=== PATIENT | female | born 1970 | race Caucasian/White ===

== ENCOUNTER 2019-06-08 08:00 | Day surgery (SDC) | payer OTHER, SELFPAY ==
[2019-05-28 14:09] VITALS: BMI 53.7
[2019-06-08] VITALS (20 sets, daily range): BP systolic 99–143; BP diastolic 57–87; PULSE 59–89; RESP 9–20; TEMP 36.2–36.7; O2SAT 92–100; BMI 53.7
--- NOTE | 2019-06-08 | PATH_ITS ---
[facility] Accession Number: [id number] . 01 Material submitted: . uterus - UTERUS AND BILATERAL FALLOPIAN TUBES . 01 Diagnosis: Uterus and Bilateral Fallopian Tubes; Uterine Morcellation and Bilateral Salpingectomy: Secretory phase endometrium. Benign leiomyomas. Negative for hyperplasia, atypia and malignancy. Benign bilateral fallopian tubes and paratubal cysts. . [facility] 06/10/2019 1733 Local . 01 Electronically signed: . Brown Johns MD, Pathologist NPI- [id number] . 01 Gross description: . Received in formalin, labeled uterus and bilateral fallopian tubes, is a morcellated uterus (149 grams, 13.5 x 11.5 x 3.8 cm in aggregate) and two detached fimbriated fallopian tubes (tube #1: length-4.7 cm, diameter-0.5 cm; tube #2: length-4.7 cm, diameter-0.5 cm. The cervix and fallopian tubes are absent. The specimen cannot be oriented and the endometrium and myometrium cannot be grossly measured. The parenchyma is serrato and contains multiple solid firm white whorled well circumscribed homogeneous nodules (0.3 x 0.2 x 0.2 cm-1.5 x 0.9 x 0.9 cm). The serosa is serrato smooth and shiny. The fallopian tubes have solo-purple smooth shiny serosa and serraot unremarkable lumens. Section code: (A1-A4) uterine parenchyma, patient portal representative; (A5) fallopian tube #1, patient portal representative serial sections; (A6) fimbria #1, bivalved, entirely submitted; (A7) fallopian tube #2, patient portal representative serial sections; (A8) fimbria #2, bivalved, entirely submitted. ([id number]) /MRV 06/09/2019 1011 Local . 01 Pathologist provided ICD-10: D25.0 . 01 CPT . 976449 Performed at: [address] [facility] [address], [place], [place] [id number] MD Fermin Murcia MD Phone: [phone]
[2019-06-08] MEDS: LACTATED RINGERS 1,000 ML 42 ML IV (09:52)
[2019-06-08] MEDS: LACTATED RINGERS 1,000 ML 100 ML IV ×3 (10:30→15:47)
[2019-06-08] MEDS: APREPITANT 40 MG CAPSULE PO (10:32)
[2019-06-08] MEDS: SCOPOLAMINE 1 PATCH TOP (10:38)
--- NOTE | 2019-06-08 10:40 | SUR.PREOP ---
Medicated with emend and scope patch due to hx of severe car sickness.
--- NOTE | 2019-06-08 10:59 | PM.PREOP ---
Pre-operative Note Interval Note History & Physical reviewed/Exam performed by Physician: Yes Changes to H&P: No
[2019-06-08] MEDS: CEFAZOLIN 2 GM/100 ML FROZ.PIGGY IV (11:10)
--- NOTE | 2019-06-08 11:37 | SUR.OPER ---
Lithotomy on padded OR bed. [employer] Pad Positioner under torso. Head on pillow, arms padded and tucked at sides. Legs secured in padded yellow fins stirrups.
[2019-06-08] MEDS: BUPIVACAINE 0.5% W/ EPI (PF) VIAL 30 ML INJ (11:53)
[2019-06-08] MEDS: SODIUM CHLORIDE IRRIG SOLUTION 250 ML, CEFAZOLIN VIAL 1 GM IRR (11:55)
[2019-06-08] MEDS: ROPIVACAINE 0.2% PF 2 MG/ML 10ML AMP 10 ML INJ (11:56)
[2019-06-08] MEDS: ACETAMINOPHEN IV 1,000 MG/100 ML VIAL 400 MG IV (12:45)
[2019-06-08] MEDS: HYDROMORPHONE 2 MG INJ 0.5 MG IV ×4 (13:26→13:46)
--- NOTE | 2019-06-08 13:28 | SUR.PHASEI ---
Pt woke restless, c/o need to void. Gandara patent. C/o 7-05/09 pelvic pain, medicated with Dilaudid. Tolerating ice chips.
--- NOTE | 2019-06-08 13:48 | SUR.PHASEI ---
Pt c/o sore lt upper lip, edema noted to lip, no bleeding noted. Moisturizer applied.
--- NOTE | 2019-06-08 14:20 | SUR.PHASEI ---
Pt c/o difficulty taking a deep breath. Rt anterior lobe coarse, lt ant. lobe clear. O2 sat 99% 2lnc. Dr. Castro notified, no new orders. Pt denied anxiety.
--- NOTE | 2019-06-08 14:29 | SUR.PHASEI ---
sats intermittently dropping to 87% 2lnc, IS provided. Instructions given verbally, pt able to reach 2500+mls. Sats currently 97%2lnc.
--- NOTE | 2019-06-08 14:39 | SUR.PHASEI ---
Report called to Veronica.
--- NOTE | 2019-06-08 15:06 | SUR.PHASEI ---
Pt transferred to the floor, with belongings bag and suitcase, on 2lnc. Small amt of sero-sang fluid to mid upper drsg and mid lower dressing. Anna-pad unchanged. IV saline locked. VS stable. Pt reported nausea after arrival. Emesis bag provided but nausea improved once the bed was parked. Pt reported her rt toes were bumped upon entering the room, denied injury to toes, no injury observed to toes.
[2019-06-08] MEDS: OXYCODONE/ACETAMINOPHEN 5/325 TABLET 2 TAB PO ×2 (15:47→22:05)
--- NOTE | 2019-06-08 18:31 | P.OP_ITS ---
Operative Date/Time/Diagnoses Date of procedure: 06/08/19 Time of procedure: 12:45 Pre-op diagnosis: Menorrhagia Enlarged fibroid uterus Dysmenorrhea Post-op diagnosis: same Procedure & Clinicians Procedure: Procedures Operation Date: 06/08/19 10:15 Actual Procedures Side Surgeon p Laparoscopic Supracervical Hysterectomy Keshia Marquez MD s Laparoscopic bilateral Salpingectomy Bilateral Keshia Marquez MD Indications: Menorrhagia Dysmenorrhea Enlarged fibroid uterus Surgeon: Keshia Marquez Party Plan Sales Host/Hostess: Amparo Bingham Anesthesia Type: General Operative Notes Findings: 11 week size fibroid uterus that is retroverted Normal tubes and ovaries Enlarged gallbladder Normal liver Normal appendix Closure Type: primary Specimen(s): left tube, right tube and uterus Applied: catheter Estimated blood loss (mL): 75 Blood products transfused: none Procedure in detail: The patient was taken to the operating room where she was placed in the dorsal supine position. After adequate general endotracheal anesthesia was achieved, she was placed in the dorsal lithotomy position, and prepped and draped in the usual sterile fashion. A timeout was performed. A bivalve speculum was placed into the vagina and the anterior lip of the cervix grasped with a single-tooth tenaculum. The cervical os was sequentially dilated until the ZUMI uterine manipulator could pass easily into the endometrial cavity. The single-tooth tenaculum was removed from the anterior lip of the cervix, and the bivalve speculum was removed from the vagina. Attention was then turned to the abdomen where 6 mL of half percent Marcaine with epinephrine were injected in the umbilical fold. A 5 mm incision was made. The long Verhees needle was placed into the peritoneal cavity, and its placement confirmed by aspiration and drop test. The Verhees needle was removed. A long 5 mm trocar was placed without difficulty. 2 other incisions were made midway between the pubic symphysis and umbilicus after 5 mL of half percent Marcaine with epinephrine were injected. These were 5 mm incisions. Two long 5 mm trochars were placed under direct visualization. The right tube was grasped with an atraumatic grasper. Using the plasma kinetic with settings of 40 W the mesosalpinx was cauterized and cut all the way down to the cornua of the uterus. The cornua of the uterus was then grasped with an atraumatic grasper. The utero-ovarian ligaments were cauterized and cut. The round ligament and broad ligament was cauterized and cut with plasma kinetic. Hemostasis was achieved. The bladder flap was created using the plasma kinetic with cautery and cut nursing home across. The uterine arteries on the right side were extensively cauterized with plasma kinetic. All of this was repeated on the left side. The remainder of the bladder flap was created using the plasma kinetic, and the bladder taken down off the lower uterine segment and cervix. Using the Endoloop, the cervix was amputated from the uterus 2 cm above the uterosacral ligaments, after the ZUMI uterine manipulator was removed from the uterus. A sponge stick was placed into the vagina. 6 mL of half percent Marcaine with epinephrine were injected above the pubic symphysis. A long 12 mm trocar was placed. The trocar was removed. The endobag was placed through the suprapubic incision into the peritoneal cavity. The uterus and tubes were placed into the endobag and the edges of the bag brought up through the suprapubic incision. The Roger placed into the endobag. The uterus was hand morcellated in approximately 12 pieces. The Endobag was removed from the peritoneal cavity. The pelvis was copiously irrigated with warm normal saline. No bleeding was noted. 20 cc of 0.2% ropivacaine were placed over the pedicles. The instruments were removed from the abdomen. The CO2 was allowed to escape. The suprapubic incision was closed on the fascia with 0 Vicryl. All of the incisions were closed with 4-0 Biosynl in a subcuticular fashion. The moistened sponge stick was removed from the vagina. Sponge, lap, and instrument counts were correct x- 2. The patient tolerated the procedure well, was taken to PACU in stable condition. Complications: none Post-operative Condition: stable Disposition: PACU Plan for aftercare: To acute care after recovery
[2019-06-08] MEDS: KETOROLAC 30 MG/ML VIAL IV (20:58)
[2019-06-08] MEDS: DOCUSATE 250 MG CAPSULE PO (20:59)
--- NOTE | 2019-06-08 23:23 | PC.NURSE ---
A&OX3. 96%RA. lap sites are cdi. Scant amount of drainage on melvin pad. pain controlled with percocet and toradol. tina patent. call light in reach.
--- NOTE | 2019-06-09 00:09 | PC.NURSE ---
Addendum entered by Dacia Solitario R.N. 06/09/19 06:26: Catheter d'cd at 0610; tolerated well. Instructed in sx/prevention of UTI; verbalizes understanding. Peripad changed but minimal sanguinous drainage noted. Addendum entered by Dacia Solitario R.N. 06/09/19 04:23: Complains of 4/10 pelvic pain; medicated with Toradol and ice applied. Original Note: Patient is alert and oriented. Breath sounds CTA with RA sat of 98%. HRR rate of 60 apical. Denies nausea. BT present but denies flatus. Abdomen is tender related to surgical incisions. Lap sites with dressings intact; dime size serosanuinous drainage on suprapubic site. Indwelling catheter is patent; urine is clear, pale yellow. Able to move self in bed. Peripad with scant serosanguinous drainage. Bilateral LE non pitting edema noted. Wearing bilateral calf SCD's. States pain is 4/10 and tolerable at this time; declined pain med. Fall risk score is moderate; patient appropriate and adamantly refusing bed alarm and agreeable to calling for assistance.
[2019-06-09] MEDS: LACTATED RINGERS 1,000 ML 100 ML IV (02:05)
[2019-06-09] MEDS: KETOROLAC 30 MG/ML VIAL IV (04:20)
[2019-06-09 04:26] VITALS: BP 119/70; PULSE 55; RESP 20; TEMP 36.7; O2SAT 95
[2019-06-09 05:51] LABS: Add Manual Diff / Slide Review NO; Basophils Absolute Auto 0 /uL (0-100); Basophils Percent Auto 0.4 % (0-2); Eosinophils Absolute Auto 0 /uL (0-450); Hematocrit 35.7 % (36-46); Hemoglobin 11.9 g/dL (12.0-16.0); Lymphocytes Absolute Auto 1000 /uL (1100-4500); Lymphocytes Percent Auto 9.6 % (25-40); Mean Corpuscular HGB Conc 33.4 % (30-36); Mean Corpuscular Hemoglobin 28.6 PG (26-34); Mean Corpuscular Volume 85.7 fL (80-100); Monocytes Absolute Auto 300 /uL (0-900); Monocytes Percent Auto 3.2 % (3-14); Neutrophils Absolute Auto 9000 /uL (1500-7000); Neutrophils Percent Auto 86.8 % (50-75); Platelet Count 255 X10^3/uL (150-400); Red Blood Cell Count 4.17 X10^6/uL (4.0-5.2); Red Cell Distribution Width 14.7 % (11.6-14.8); White Blood Cell Count 10.3 X10^3/uL (4.5-11.0)
[2019-06-09 08:23] VITALS: BP 124/59; PULSE 51; RESP 16; TEMP 36.8; O2SAT 96
--- NOTE | 2019-06-09 09:15 | CM.DANOTE ---
Addendum entered by JAMMIE Manuel 06/09/19 15:02: ADD: Per MD, pt medically stable to d/c home today with no identified barriers to discharge. Per RN, pt has friend here to help get medications and transport pt back to Saturday and no concerns at this time. Plan: Patient to d/c back home via friend POV this afternoon and no SW needs at this time. BF Original Note: Patient is a 48 year old female who was admitted on 06/08/19 for Surgical procedure for pelvic pain. Pt has [employer] Insurance and her PCP is Dr. Tawnya Bobo. EMR was reviewed. Per Dr. Marquez, pt tolerated surgical procedure well. Pt resides on Saturday and is Independent with ADL's at baseline. Plan: SW to follow closely for bedside assessment to determine how pt progresses and if continues to be safe for return home at d/c and any further identified needs. JAMMIE Manuel
[2019-06-09] MEDS: DOCUSATE 250 MG CAPSULE PO (09:18)
[2019-06-09] MEDS: OXYCODONE/ACETAMINOPHEN 5/325 TABLET 2 TAB PO ×2 (09:23→14:32)
[2019-06-09 11:42] VITALS: BP 117/64; PULSE 54; RESP 15; TEMP 37; O2SAT 95
--- NOTE | 2019-06-09 11:56 | PC.NURSE ---
Addendum entered by Komal Barber R.N. 06/09/19 16:11: Patient escorted out via wheelchair by hospital staff. Friend w/patient Addendum entered by Tabitha Starks R.N. 06/09/19 14:53: PRN Percocet and Ibuprofen X1 given prior to discharge. Pt's plans to leave around 1545 for [address] to [place]. Pt has Priority boarding pass. Discharge summary packet reviewed with patient, no voiced concerns. States has all belongings. Pt's friend took her prescription from Dr. simons to take to pharmacy per pt request. Pt states has Colace medication, prunes, ibuprofen at home already. Original Note: Day Shift- Pt's pain 4-6/10 to lower pelvic area and intermittent sharp pain to RLQ. Abd lap sites X4 gauze and tegaderm intact with small drainage to pelvic site and umbilicus site. PT VOIDED X3 since urinary catheter removed. No spotting noted on melvin-pad. Drinking fair amount of water. IVF S/L'd at 1155. Pt OOB with SBA. Would like to go home later today after Dr toure.
[2019-06-09 13:18] VITALS: PULSE 62; RESP 21; O2SAT 96
[2019-06-09] MEDS: IBUPROFEN 600 MG TABLET PO (14:32)
--- NOTE | 2019-06-09 20:33 | P.DS_ITS ---
History of Present Illness History of Present Illness Date Patient Seen: 06/09/19 Time Patient Seen: 13:30 Chief complaint: *OPB*[id number] Narrative: Patient is a 48-year-old 0 who is postop day # 1 status post laparoscopic supracervical hysterectomy with bilateral salpingectomy Patient's catheter was removed this morning and she was able to completely empty her bladder. She is tolerating a diet. Her pain is well controlled. She is ambulating independently. Discharge Providers Provider Discharge Date: 06/09/19 Primary care physician: BINDU Mckeon Consults: 06/08/19 16:43 Consult to Respiratory Therapy Evaluate & Treat Comment: Physician Instructions: Evaluate and treat Discharge provider: Keshia Marquez MD Summary Hospital Course Discharge Diagnosis: Laparoscopic supracervical hysterectomy with bilateral salpingectomy Hospital Course: Patient presented on 06/08/2019 for a scheduled laparoscopic supracervical hysterectomy with bilateral salpingectomy. She underwent these procedures without complication. Her postoperative course was unremarkable. She was emptying her bladder on postop day # 1. She is tolerating a diet. She has no nausea and vomiting. She is ambulating independently. Her pain is well controlled. She is discharged home to follow up at 2 weeks Status at Discharge Cognitive/behavioral status at discharge: oriented Functional status at discharge: independent ambulation Overall status at discharge: patient is progressing back to baseline Time Spent with Patient Time spent: Less than 30 minutes Exam Vital Signs (past 8 hours): - 06/09/19 13:18 Pulse Rate 62 Respiratory Rate 21 Pulse Oximetry 96 Oxygen Delivery Method Room Air Oxygen Flow Rate 0 Narrative Exam Narrative: Generally: Patient is sitting up in a chair, eating lunch, no acute distress Lungs: Clear to auscultation bilaterally Cardiovascular: Regular rate and rhythm Abdomen: Soft and flat. Good bowel sounds Incisions: Clean dry and intact with op sites Extremities: Negative Homans, no edema Objective Labs Result Diagrams: 06/09/19 05:05 Labs: Laboratory Results - last 24 hr 06/09/19 05:05 WBC 10.3 RBC 4.17 Hgb 11.9 L Hct 35.7 L MCV 85.7 MCH 28.6 MCHC 33.4 RDW 14.7 Plt Count 255 Neut % (Auto) 86.8 H Lymph % (Auto) 9.6 L [place] % (Auto) 3.2 Eos % (Auto) 0.0 L Baso % (Auto) 0.4 Neut # (Auto) 9000 H Lymph # (Auto) 1000 L [place] # (Auto) 300 Eos # (Auto) 0 Baso # (Auto) 0 Discharge Plan Discharge Plan Patient Disposition: Home Discharge comment: Call with fever, chills or bleeding vaginally more than spotty to light Discharge Med Rec/Prescriptions Prescriptions: New oxycodone-acetaminophen [Percocet] 5-325 mg tablet 2 tab PO Q4-6H PRN (Reason: pain) Qty: 30 RF: 0 Continued oxycodone-acetaminophen [Percocet] 5-325 mg tablet 1 tab PO Q4-6H PRN (Reason: pain) Qty: 30 RF: 0 rizatriptan 5 mg tablet 10 mg PO ONCE PRN (Reason: Migraine Headache) RF: 0 acetaminophen See Rx Instructions .ROUTE .COMPLEX RF: 0 ibuprofen 800 mg PO 4-6XD PRN (Reason: Pain, Mild) RF: 0 ondansetron 4 mg Tablet,Disintegrating 4 mg PO Q6H PRN (Reason: Migraine Headache) RF: 0 Discontinued medroxyprogesterone 10 mg tablet See Rx Instructions PO DAILY PRN (Reason: Bleeding) RF: 0 Follow up/Referrals: Keshia Marquez MD [Physician] - 2 Weeks (2 week appt by phone 6 week appt in the office) Discharge Orders: Discharge (Order); Ordered 06/09/19 Ordered By: Keshia Marquez Provider Discharge Instructions Diet: Regular Skin/Wound/Dressing Care Report to your healthcare provider any signs of infection, such as:: chills, fever, increased pain, unusual drainage and unusual redness Dressing: Remove outer plastic dressings and guaze tomorrow after a shower Visit Report/Discharge Packet Instructions: DI for Hysterectomy, DI for Laparoscopy, DI for Constipation, How to Prevent Falls, DI for Postoperative Pain Stand Alone Forms: Surgery Discharge Discharge Data Primary Care Provider: Tawnya Bobo Attending Provider: Keshia Marquez Discharges patient from system. Discharge Date/Time: 06/09/19 16:00
== END 2019-06-09 16:00 | disposition home or self-care (01) ==
LOC: OR 08:02 → AC 08:03
PROVIDERS: PCP Nurse Practitioner Family; Visit Provider Obstetrics & Gynecology
PROC: 0UT94ZL Resection of Uterus, Supracervical, Percutaneous Endoscopic Approach (ICD-10-PCS; CPT 58542; principal; 2019-06-08 10:15)
PROC: 0UT74ZZ Resection of Bilateral Fallopian Tubes, Percutaneous Endoscopic Approach (ICD-10-PCS; CPT 58661; 2019-06-08 10:15)
DX: D25.0 Submucous leiomyoma of uterus (principal); I10 Essential (primary) hypertension; E78.00 Pure hypercholesterolemia, unspecified
CPT/HCPCS: 58542; 36415; 85025; 94762; J0131; J0330; J0690; J1100; J1170; J1885; J2250; J2405; J2704; J2795; J3010; J8501